=== PATIENT | male | born 2005 | race Caucasian/White ===

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

== ENCOUNTER 2023-01-22 18:25 | Emergency (ER) | payer OTHER ==
[2023-01-22 18:42] VITALS: BP 136/77; PULSE 77; RESP 18; TEMP 98.4; BMI 26.6
[2023-01-22] MEDS ORDERED: SODIUM CHLORIDE 1,000 ML IV STA (19:38)
[2023-01-22] MEDS ORDERED: ONDANSETRON 4 MG/2 ML VIAL IVPUSH ONE (19:38)
[2023-01-22] MEDS ORDERED: ONDANSETRON 4 MG/2 ML VIAL ONE (19:41)
[2023-01-22 20:05] LABS: HEMATOCRIT 39.6 % (35.4-49); HEMOGLOBIN 13.7 G/dL (11.7-16.9); MCH 29.1 pg (25.7-33.7); MCHC 34.7 g/dl (32.0-35.9); PLATELET COUNT 218.9 10^3/uL (134-434); RBC 4.72 10^6/uL (4.00-5.60); RDW 14.1 % (11.9-15.9); WHITE BLOOD COUNT 10.2 10^3/uL (4.0-10.8)
[2023-01-22 20:49] LABS: PLATELET ESTIMATE ADEQUATE
[2023-01-22 21:29] LABS: CALCIUM 9.2 mg/dL (8.5-10.1)
[2023-01-22 21:30] LABS: ALBUMIN 4.3 g/dl (3.4-5.0); BLOOD UREA NITROGEN 10.4 mg/dL (7-18)
[2023-01-22 21:33] LABS: CREATININE 0.8 mg/dL (0.55-1.3)
[2023-01-22 21:35] LABS: BILIRUBIN,TOTAL 0.6 mg/dL (0.2-1)
[2023-01-22] MEDS ORDERED: AMOXICILLIN 500 MG CAPSULE (FP) PO ONE (21:38)
[2023-01-22] MEDS ORDERED: AMOXICILLIN 250 MG CAPSULE ONE (21:40)
== END 2023-01-22 21:53 | disposition home or self-care (01) ==
LOC: FER 18:25
PROC: 3E033GC Introduction of Other Therapeutic Substance into Peripheral Vein, Percutaneous Approach (ICD-10-PCS; principal; 2023-01-22)
PROC: 3E0337Z Introduction of Electrolytic and Water Balance Substance into Peripheral Vein, Percutaneous Approach (ICD-10-PCS; 2023-01-22)
DX: R11.2 Nausea with vomiting, unspecified (principal); J02.9 Acute pharyngitis, unspecified; K52.9 Noninfective gastroenteritis and colitis, unspecified
CPT/HCPCS: 36415; 80053; 85027; 87651; 99284-25

== ENCOUNTER 2023-05-18 18:36 | Emergency (ER) | payer OTHER ==
[2023-05-18 19:04] VITALS: BP 130/84; PULSE 70; RESP 18; TEMP 99; BMI 25.8
[2023-05-18] MEDS ORDERED: ONDANSETRON *ODT* 4 MG TABLET ONE (20:30)
[2023-05-18] MEDS: ONDANSETRON *ODT* 4 MG TABLET SL ONE (20:32)
== END 2023-05-18 21:35 | disposition home or self-care (01) ==
LOC: FER 18:36
DX: U07.1 COVID-19 (principal); R11.0 Nausea; R42 Dizziness and giddiness
CPT/HCPCS: 99283-25; Q0162

== ENCOUNTER 2023-12-08 16:23 | Emergency (ER) | payer OTHER ==
[2023-12-08 16:39] VITALS: BP 123/62; PULSE 90; RESP 16; TEMP 100.7; BMI 25.0
[2023-12-08] MEDS ORDERED: ONDANSETRON *ODT* 4 MG TABLET ONE (18:20)
[2023-12-08] MEDS ORDERED: ACETAMINOPHEN 500 MG TABLET (FP) ONE (18:20)
[2023-12-08] MEDS: ONDANSETRON *ODT* 4 MG TABLET SL ONE (18:22)
[2023-12-08] MEDS: ACETAMINOPHEN 500 MG TABLET (FP) PO ONE (18:23)
== END 2023-12-08 19:05 | disposition home or self-care (01) ==
LOC: FER 16:23
DX: R50.9 Fever, unspecified (principal); K04.7 Periapical abscess without sinus; M79.10 Myalgia, unspecified site; R11.10 Vomiting, unspecified; K08.89 Other specified disorders of teeth and supporting structures; Z20.822 Contact with and (suspected) exposure to COVID-19
CPT/HCPCS: 0241U-QW; 99283-25; Q0162